=== PATIENT | male | born 1965 | race Caucasian/White ===

== ENCOUNTER 2018-02-02 21:05 | Emergency (ER) | payer BC, OTHER ==
[2018-02-02] MEDS ORDERED: Ondansetron HCl/PF 4 MG/2 ML Vial ONE (21:51)
[2018-02-02 22:12] LABS: #Basophils 0.1 thou/uL (0.0-0.2); #Eosinphils 0.1 thou/uL (0.0-0.7); #Lymphocytes 1.3 thou/uL (1.20-3.40); #Monocytes 0.6 thou/uL (0.11-0.59); #Neutrophils 8.3 thou/uL (1.40-6.50); %Eosinophils 1.3 % (0.0-10.0); %Lymphocytes 12.3 % (21.0-51.0); %Monocytes 5.4 % (0.0-10.0); %Neutrophils 80.1 % (42.0-75.0); Hemoglobin 15.4 g/dL (14.0-18.0); Mean Corpuscular HGB CONC 36.1 g/dL (32.0-36.0); Mean Corpuscular Hemoglobin 31.5 pg (27.0-31.0); Mean Corpuscular Volume 87.2 fl (80.0-94.0); Mean Platelet Volume 9.2 fL (7.4-10.4); Platelet Count 206 thou/uL (130-400); RBC Distribution Width 12.1 % (11.5-14.5); Red Blood Cell (RBC) Count 4.88 mill/uL (4.70-6.10); White Blood Cell (WBC) Count 10.4 thou/uL (4.8-10.8)
[2018-02-02 22:20] LABS: Bilirubin Negative (Negative); Blood, Urine Moderate (Negative); Clarity Slightly Cloudy (Clear); Glucose, Urine (Dipstick) Negative (Negative); Leukocyte Negative (Negative); Nitrite Negative (Negative); Protein, Urine (Dipstick) Negative (Neg-Trace); Specific Gravity, Urine 1.027 (1.005-1.030); Urobilinogen 0.2 mg/dL (0.2-1.0); pH, Urine 5.5 (5.0-9.0)
[2018-02-02 22:24] LABS: Hyaline Casts/LPF 0-3 HYALINE CAST LPF (0-3 Hyaline); Squamous Epithelial 0-3 HPF (0-3); WBC/HPF 0-3 HPF (0-3)
[2018-02-02 22:25] LABS: Bacteria/HPF Rare-Few HPF (None Seen)
[2018-02-02 22:27] LABS: ALT (SGPT) 57 U/L (8-55); Albumin 4.1 g/dL (3.5-5.0); Alkaline Phosphatase 55 U/L (40-150); Anion Gap 15 mmol/L (10-20); BUN (Urea Nitrogen) 16 mg/dL (8.4-25.7); Bilirubin, Total 0.3 mg/dL (0.2-1.2); Calc. Creatinine Clearance 0 mL/min (70-130); Calcium 9.4 mg/dL (7.8-10.44); Carbon Dioxide 21 mmol/L (22-29); Chloride 108 mmol/L (98-107); Estimated GFR-MDRD 77; Globulin 2.5 g/dL (2.4-3.5); Glucose 137 mg/dL (70-105); Potassium 4.6 mmol/L (3.5-5.1); Protein, Total 6.6 g/dL (6.0-8.3); Sodium 139 mmol/L (136-145)
[2018-02-02] MEDS ORDERED: Acetaminophen/Codeine 30-300mg Tablet ONE (22:43)
[2018-02-02 22:48] LABS: AST (SGOT) 30 U/L (5-34)
--- NOTE | 2018-02-02 23:12 | CT ---
ABDOMEN CT WITH CONTRAST: PELVIS CT WITH CONTRAST: HISTORY: Left lower quadrant pain. History of diverticulitis. COMPARISON: 06/02/2015 TECHNIQUE: An abdomen and pelvis CT is performed with IV contrast. Enteric contrast was not administered. Enmanuel nal reformatted images are submitted for interpretation. FINDINGS: ABDOMEN: The lung bases are clear. Normal heart size. Descending thoracic aorta and abdominal aort a have a normal caliber. No periaortic fat stranding. Intrahepatic and extrahepatic portal veins ar e patent. The gallbladder is unremarkable. Hepatic steatosis is noted. No hepatic masses. The spleen, pancreas, and adrenal glands have approp riate enhancement. No gastrohepatic, retrocrural, or periportal lymphadenopathy. Scattered nonspecific mesenteric lymph nodes. No mesenteric mass, free air, or free fluid. Nonobstructing 1 to 2 mm calculi in the right renal pelvis. Nonobstructing 8 mm calculus in the left renal pelvis. There are rare pelvic cysts in the left kidney. There is a large exophytic cyst in t he left kidney, extending down to the renal pelvis, measuring 4.7 x 4.5 cm. Symmetric enhancement of the kidneys. Bilaterally, no obstructive uropathy. Limited evaluation of the alimentary canal due to lack of oral contrast. Gastric mucosa, duodenum, and multiple normal caliber small bowel loops are noted. The ileocecal mario ction is normal. Normal appendix. Scattered fecal material in a nondistended. nondilated colon. Th ere is evidence of diverticulosis throughout the colon. Mucosal prominence of the sigmoid colon, lik josé due to inadequate distention. No definite evidence of diverticulitis. If there is concern for m ucosal based pathology in the colon, nonemergent colonoscopy is recommended. PELVIS: No mass, lymphadenopathy, free air, or free fluid. The urinary bladder is unremarkable. No lytic or blastic lesions of the osseous structures. IMPRESSION: 1. Normal caliber appendix. 2. Redemonstration of left renal cysts and parapelvic cyst. 3. Bilateral nonobstructing intrarenal calculi. 4. Diverticulosis without evidence of diverticulitis. Mucosal prominence of the left hemicolon is p resumed to be due to remote bouts of diverticular disease and inadequate distention. Correlate with colonoscopy. POS: PPP
[2018-02-02] MEDS ORDERED: Ketorolac Tromethamine 30 MG/ML VIAL ONE (23:37)
== END 2018-02-03 00:54 | disposition home or self-care (01) ==
LOC: SCSER 21:05
DX: R10.32 Left lower quadrant pain (principal); F41.9 Anxiety disorder, unspecified; K58.9 Irritable bowel syndrome, unspecified; G47.30 Sleep apnea, unspecified; Z79.82 Long term (current) use of aspirin; Z79.899 Other long term (current) drug therapy
CPT/HCPCS: 74177; 80053; 81003; 81015; 85025; 87086; 96361; 96372; 96374; J1885; J2405

== ENCOUNTER 2020-02-29 13:19 | Emergency (ER) | payer BC ==
[~2020-02-29 13:19] MED LIST: Dexamethasone 20 MG/5 ML VIAL ONE; Ketorolac Tromethamine 30 MG/ML VIAL ONE; Lidocaine 1% PF 5 ML VIAL ONE; Ondansetron PF 4 MG/2 ML Vial ONE; PROPOFOL 200 MG/20 ML VIAL ONE
[2020-02-29 14:01] LABS: Prothrombin Time 13.6 sec (12.0-14.7)
[2020-02-29 14:02] LABS: PTT 30.9 sec (22.9-36.1)
--- NOTE | 2020-02-29 14:06 | RAD ---
EXAM: Single view of the chest HISTORY: Preoperative radiograph COMPARISON: 05/21/2019 FINDINGS: Single view of the chest shows a normal sized cardiomediastinal silhouette. There is no celeste dence of consolidation, mass, or pleural effusion. The bones are unremarkable. IMPRESSION: No evidence of acute cardiopulmonary disease
--- NOTE | 2020-02-29 14:52 | CON ---
DATE OF CONSULTATION: REQUESTING PHYSICIAN: Dr. Diallo in the emergency department. REASON FOR CONSULTATION: Left ureteral stone and left hydronephrosis. HISTORY OF PRESENT ILLNESS: Mr. Garcia is a 54-year-old male with past urologic history significant for urolithiasis. He has never seen a urologist in the past. The patient has passed one stone previously and had an episode which he thought was a stone approximately 3 months ago. He had an outpatient consultation set up in the near future with a local urologist. However, he has not yet established care. He woke up this morning at 6:00 a.m. with acute onset of left-sided flank pain associated with nausea. He presented to the [facility] Emergency Department at which point, a CT of the abdomen and pelvis was performed, which demonstrated a 9 mm left proximal ureteral calculus near the level or just distal to the level of the left ureteropelvic junction with hydroureteronephrosis and perinephric stranding. There was also a nonobstructing right renal calculus approximately 4 mm in diameter. The patient's pain was poorly controlled after he was given IV Toradol and several doses of IV narcotic. He was therefore transferred to the [facility] facility in [place] and Urology was consulted for further evaluation. The patient denies any fever. The patient has had some dysuria and reports cloudy urine. No gross hematuria. He has been nauseated, but no vomiting. No chest pain or shortness of breath. No productive cough. No other complaints. REVIEW OF SYSTEMS: Full 12-point review of systems was performed and was negative other than that mentioned in HPI. PAST MEDICAL HISTORY: Hypertension, urolithiasis, obstructive sleep apnea. PAST SURGICAL HISTORY: None. FAMILY HISTORY: Noncontributory. SOCIAL HISTORY: No alcohol, tobacco, or illicit drugs. ALLERGIES: DARVOCET. MEDICATIONS: None. PHYSICAL EXAMINATION: VITAL SIGNS: Blood pressure 136/98, pulse 107, respirations 18, oxygen saturation 98% on room air. GENERAL: He is awake, alert, and oriented x3, in no apparent distress. HEENT: Normocephalic, atraumatic. NECK: Supple. No masses or lymphadenopathy. CARDIOVASCULAR: Tachycardic, but regular. PULMONARY: Breathing unlabored. ABDOMEN: Soft, nontender/nondistended. No masses or organomegaly. No suprapubic tenderness to palpation. Positive left CVA tenderness. No right CVA tenderness. EXTREMITIES: Warm and well perfused. No edema. NEUROLOGIC: No focal deficits. PSYCHIATRIC: Normal mood and appropriate affect. LABORATORY DATA: White blood cell 11.7, hemoglobin 15.6, hematocrit 45.9, platelets 239. Sodium 137, potassium 4.0, chloride 104, bicarb 20, BUN 20, creatinine 1.28. Urinalysis, 4 to 6 white blood cells per high-power field, greater than 50 red blood cells per high-power field, negative leukocyte esterase, negative nitrite. RADIOLOGY DATA: CT abdomen and pelvis films were reviewed and I agree with radiology interpretation. 9 mm left ureteropelvic junction stone, nonobstructing right renal stone approximately 4 mm in diameter. ASSESSMENT: A 54-year-old male with a 9 mm left ureteropelvic junction stone, left hydronephrosis, intractable left flank pain. PLAN: I reviewed the natural history and clinical implications of ureterolithiasis with the patient in detail. I discussed his minimal chance of spontaneous passage of a stone of this size. I discussed options with the patient including left ureteral stent placement, left ureteroscopy, laser lithotripsy, and extracorporeal shockwave lithotripsy. I explained that we do not immediately have a laser or Lithotripter available. After indications/risks/benefits/alternatives/possible outcomes were discussed with the patient in detail, he elected to proceed with left ureteral stent placement and planned staged management of this stone definitively by either ureteroscopy with laser lithotripsy or left extracorporeal shockwave lithotripsy as an outpatient in the future. The patient has been n.p.o. He will remain n.p.o. We will perform left ureteral stent placement later today after which he can be discharged home and he will follow up for outpatient scheduling of his surgery to definitively manage the stone. Thank you for allowing me to participate in the care of this patient. Job ID: [id number]
[2020-02-29] MEDS ORDERED: Fentanyl 100 MCG/2 ML VIAL ONE (15:36)
[2020-02-29] MEDS ORDERED: Iopamidol 50 ML FS ONE (15:41)
[2020-02-29] MEDS ORDERED: Levofloxacin 500 mg/D5W 100 ml Premix Bag ONE (16:02)
--- NOTE | 2020-02-29 16:43 | RAD ---
RETROGRADE UROGRAM: 02/29/20 PROVIDED CLINICAL HISTORY: Ureteral stent placement. Single spot fluoroscopic image of the abdomen, not labeled with respect to side submitted. There is o pacification of the left ureter and left renal collecting system. Linear density within the opacified ureter compatible with the provided clinical history of stent, the proximal coil of which is difficu lt to localize. IMPRESSION: As above. POS: KYA
[2020-02-29] MEDS ORDERED: Meperidine HCl/PF 25 MG/ML VIAL ONE (16:54)
--- NOTE | 2020-02-29 17:23 | OP ---
DATE OF PROCEDURE: 02/29/2020 CYCLE SPECIALIST: None. PREPROCEDURE DIAGNOSES: 1. Left ureteral stone. 2. Left hydronephrosis. 3. Intractable left flank pain. POSTPROCEDURE DIAGNOSES: 1. Left ureteral stone. 2. Left hydronephrosis. 3. Intractable left flank pain. PROCEDURES PERFORMED: 1. Cystoscopy with placement of left ureteral stent. 2. Left retrograde ureteral pyelogram. 3. Manipulation of left ureteral stone into left renal pelvis for treatment. ANESTHESIA: LMA anesthesia. COMPLICATIONS: None. FLUIDS: See Anesthesia record. BLOOD LOSS: Minimal. SPECIMENS: None. POSTPROCEDURE STATUS: Satisfactory. INDICATIONS FOR PROCEDURE: Mr. Garcia is a 54-year-old male with past urologic history significant for urolithiasis. The patient was first seen at the [facility] Emergency Department and was diagnosed with a 9 mm proximal left ureteral stone. He received IV morphine and Toradol and his pain was not well controlled. He was therefore transferred to [facility]. After indications/risks/benefits/alternatives/possible outcomes were discussed with the patient in detail, he elected to proceed with left ureteral stent placement and all indicated procedures. DESCRIPTION OF PROCEDURE: The patient was taken to the operating room and after successful induction of LMA anesthesia, he was placed in the dorsal lithotomy position. His genitalia were prepped and draped in usual sterile fashion. A time-out was performed. Following which, a 22-Russian rigid cystoscope was inserted in the patient's urethra and advanced to his bladder. His urethra was normal. The prostatic urethra was normal. Had bilobar enlargement of the prostate. Complete cystoscopy was performed with a 30-degree lens, which demonstrated no significant mucosal abnormality. Ureteral orifices were in normal orthotopic location bilaterally. The left ureteral orifice was cannulated with a 0.035 inch Stiff shaft ZIPwire and this was manipulated beyond the stone, which could be seen fluoroscopically at the left ureteropelvic junction and into the left renal pelvis. We placed a 5-Russian open-ended ureteral catheter over the wire and we manipulated the ureteral catheter up to the level of the stone and eventually manipulated the stone back into the left renal pelvis with the open-ended catheter. The wire was removed and a retrograde pyelogram was performed with a 50:50 mix of Isovue contrast and saline. There was moderate left hydroureteronephrosis to the proximal ureter. There were no filling defects or other concerning findings. The wire was replaced and the open-ended ureteral catheter was removed. A 6-Russian x 26 cm double-J ureteral stent was placed over the wire and upon wire removal, a good curl was achieved proximally within the left renal pelvis and distally within the bladder. The patient's bladder was drained. He tolerated the procedure well, was awoken from anesthesia, and transferred to the PACU in satisfactory condition. PLAN: The patient will be discharged home once PACU criteria is met. He will follow up for scheduling for definitive management of this stone either by ureteroscopy with laser lithotripsy or extracorporeal shockwave lithotripsy. Job ID: [id number]
== END 2020-02-29 14:22 | disposition admitted as inpatient to this hospital (09) ==
LOC: ERS 13:19
DX: N13.2 Hydronephrosis with renal and ureteral calculous obstruction (principal); G47.30 Sleep apnea, unspecified; F41.9 Anxiety disorder, unspecified; Z87.442 Personal history of urinary calculi
CPT/HCPCS: 36415; 71045; 74420; 85610; 85730; J1100; J1885; J1956; J2001; J2175; J2405; J2704; J3010; Q9967

== ENCOUNTER 2020-12-17 09:48 | Outpatient (CLI) | payer BC | END 2020-12-17 09:49 | disposition home or self-care (01) | LOC: BICRAD 09:48 | PROVIDERS: ATTEND Nurse Practitioner Family | DX: Z91.81 History of falling (principal) | CPT/HCPCS: 71046 ==

== ENCOUNTER 2022-08-19 16:50 | Emergency (ER) | payer BC ==
[2022-08-19] MEDS ORDERED: Aspirin Chewable 81 MG TAB ONE (17:28)
[2022-08-19] MEDS ORDERED: Acetaminophen 500 MG TAB ONE (17:28)
[2022-08-19 17:39] LABS: #Basophils 0.1 thou/uL (0.0-0.2); #Eosinphils 0.4 thou/uL (0.0-0.7); #Lymphocytes 1.5 thou/uL (1.20-3.40); #Monocytes 0.7 thou/uL (0.11-0.59); #Neutrophils 6.1 thou/uL (1.40-6.50); %Basophils 0.7 % (0.0-1.0); %Eosinophils 4.2 % (0.0-10.0); %Lymphocytes 16.8 % (21.0-51.0); %Monocytes 8.4 % (0.0-10.0); Hemoglobin 16.4 g/dL (14.0-18.0); Mean Corpuscular HGB CONC 33.4 g/dL (32.0-36.0); Mean Corpuscular Hemoglobin 31.3 pg (27.0-31.0); Mean Corpuscular Volume 93.7 fl (78.0-98.0); Mean Platelet Volume 9.5 fL (7.4-10.4); Platelet Count 215 10x3/uL (130-400); RBC Distribution Width 12.6 % (11.5-14.5); Red Blood Cell (RBC) Count 5.23 mill/uL (4.70-6.10); White Blood Cell (WBC) Count 8.7 10x3/uL (4.8-10.8)
[2022-08-19 18:02] LABS: ALT (SGPT) 92 U/L (8-55); AST (SGOT) 35 U/L (5-34); Albumin 4.1 g/dL (3.5-5.0); Alkaline Phosphatase 68 U/L (40-110); Anion Gap 13 mmol/L (10-20); BUN (Urea Nitrogen) 17 mg/dL (8.4-25.7); Bilirubin, Total 0.2 mg/dL (0.2-1.2); Calc. Creatinine Clearance 0 mL/min (70-130); Calcium 9.2 mg/dL (7.8-10.44); Carbon Dioxide 21 mmol/L (22-29); Chloride 109 mmol/L (98-107); Estimated GFR 87; Globulin 2.6 g/dL (2.4-3.5); Glucose 150 mg/dL (70-105); Potassium 4.4 mmol/L (3.5-5.1); Protein, Total 6.7 g/dL (6.0-8.3); Sodium 139 mmol/L (136-145)
== END 2022-08-19 19:53 | disposition home or self-care (01) ==
LOC: ERS 16:50
DX: R51.9 Headache, unspecified (principal); I10 Essential (primary) hypertension
CPT/HCPCS: 36415; 70450; 71045; 80053; 83880; 84484; 85025; 93005

== ENCOUNTER 2023-05-19 14:19 | Outpatient (CLI) | payer OTHER | END 2023-05-19 14:20 | disposition home or self-care (01) | LOC: RAD 14:19 | PROVIDERS: ATTEND Nurse Practitioner Women's Health | DX: M25.561 Pain in right knee (principal); M25.551 Pain in right hip; M17.11 Unilateral primary osteoarthritis, right knee ==

== ENCOUNTER 2023-10-17 14:18 | Outpatient (CLI) | payer OTHER | END 2023-10-17 14:19 | disposition home or self-care (01) | LOC: BICRAD 14:18 | PROVIDERS: ATTEND Nurse Practitioner Family | DX: N23 Unspecified renal colic (principal); N20.0 Calculus of kidney | CPT/HCPCS: 74018 ==